=== PATIENT | female | born 1965 | race African-American/Black ===

== ENCOUNTER 2018-12-01 20:12 | Emergency (ER) | payer OTHER ==
[~2018-12-01] VITALS: Ht 167.6 cm; Wt 77.1 kg
[2018-12-01] MEDS ORDERED: NOHOMEMEDICATIONS (20:57)
[2018-12-01 21:45] VITALS: BP 150/78
== END 2018-12-01 21:45 ==
LOC: ER 20:12
DX: S80.211A Abrasion, right knee, initial encounter (principal); F17.210 Nicotine dependence, cigarettes, uncomplicated; X58.XXXA Exposure to other specified factors, initial encounter; Y92.89 Other specified places as the place of occurrence of the external cause; Y93.89 Activity, other specified; Y99.8 Other external cause status

== ENCOUNTER 2019-02-02 13:24 | Emergency (ER) | payer OTHER ==
[~2019-02-02] VITALS: Ht 170.2 cm; Wt 90.7 kg
[~2019-02-02 13:24] MED LIST: NOHOMEMEDICATIONS
[2019-02-02] MEDS ORDERED: VENTOLIN HFA 1818 GM INH (14:00)
[2019-02-02] MEDS ORDERED: AMLODIPINE BESY10 MG PO (14:00)
[2019-02-02] MEDS ORDERED: ASPIR 8181 MG PO (14:23)
[2019-02-02 14:36] LABS: ABSOLUTE NEUTROPHILS 2.2 thou/uL (1.4-8.2); BASOPHILS 0.8 % (0.0-2.0); EOSINOPHILS 8.4 % (0.0-3.0); HEMATOCRIT 40.5 % (37.0-47.0); HEMOGLOBIN 13.3 gm/dL (12.0-15.0); LYMPHOCYTES 45.1 % (24.0-44.0); MCH 27.4 pg (26.0-34.0); MCHC 32.9 g/dL (28.0-37.0); MCV 83.4 fL (80.0-100.0); MONOCYTES 6.6 % (1.0-8.0); PLATELET COUNT 298 thou/uL (150-400); POLYS 39.1 % (36.0-66.0); RBC 4.86 mil/uL (4.20-5.00); RDW 15.1 % (10.5-14.5); WBC 5.5 thou/uL (4.0-11.0)
[2019-02-02 14:39] LABS: ANION GAP 9 mmol/L (7-16); BUN 14 mg/dL (7-18); CALCIUM 8.7 mg/dL (8.5-10.1); CHLORIDE 109 mmol/L (98-107); CO2 25 mmol/L (21-32); CREATININE 0.8 mg/dL (0.6-1.0); GLUCOSE 111 mg/dL (74-106); POTASSIUM 3.8 mmol/L (3.5-5.1); SODIUM 143 mmol/L (136-145)
[2019-02-02 14:49] LABS: ALBUMIN 3.8 g/dL (3.4-5.0); SGOT 17 U/L (15-37); SGPT 29 U/L (30-65); TOTAL BILIRUBIN 0.3 mg/dL (<0.1-1.0); TROPONIN-I <0.06 ng/mL (<0.06)
[2019-02-02] MEDS ORDERED: NORCO 5-325 TA1 EAC1 PO (15:06)
[2019-02-02 15:20] VITALS: BP 132/86
--- NOTE | 2019-02-03 15:24 | EKG ---
[address] [place] [address] ELECTROCARDIOGRAM REPORT Name: PRUDENCE ESTRADA Room #: [facility]USMarl[facility]#: [id number] ������������������ Admission: 02/02/19 ������������������ Attend Phys: Discharge: 02/02/19 ������������������ Date of : 61 Report #: [id number] ����������������������������������������������������������������� [id number] THIS REPORT FOR: //name// [facility] ED Test Date: 2019-02-02 Test Time: 13:35:30 Pat Name: PRUDENCE ESTRADA Department: Room: Gender: F Housekeeping/Laundry: : 1965 Requested By: Ita Wolff Order Number: [id number] MD: Serafin Nelson Measurements Intervals Kipling Rate: 74 P: 10 CO: 142 QRS: 9 QRSD: 91 T: -44 QT: 462 QTc: 513 Interpretive Statements Sinus rhythm Nonspecific ST and T wave abnormality Prolonged QT interval No previous ECG available for comparison Electronically Signed On 02-03-2019 15:23:44 CDT by Serafin Nelson [email or web address] ��������������������������������������������� <ELECTRONICALLY SIGNED> ���������������������������������������� By: Serafin Nelson MD, [facility] ��������������������������������������������� 02/03/19 1523 1335 [id number] Serafin Nelson MD, FACC /EPI
== END 2019-02-02 15:23 | disposition home or self-care (01) ==
LOC: ER 13:24
PROVIDERS: Physician Assistant
DX: R07.89 Other chest pain (principal); I10 Essential (primary) hypertension; F17.210 Nicotine dependence, cigarettes, uncomplicated; Z86.73 Personal history of transient ischemic attack (TIA), and cerebral infarction without residual deficits; Z88.5 Allergy status to narcotic agent